=== PATIENT | female | born 1955 | race Caucasian/White ===

== ENCOUNTER 2024-03-30 19:34 | Emergency (ER) | payer MEDICARE ==
[2024-03-30] MEDS ORDERED: Morphine 4 MG/ML VIAL ONE (19:54)
[2024-03-30] MEDS ORDERED: Ketorolac Tromethamine 30 MG (1 mL) VIAL ONE (19:54)
[2024-03-30] MEDS ORDERED: Cyclobenzaprine 10 MG TAB ONE (20:14)
[2024-03-30] MEDS ORDERED: Acetaminophen/Codeine 30-300mg Tablet ONE (20:14)
== END 2024-03-30 20:27 | disposition home or self-care (01) ==
LOC: BURERS 19:34
DX: M94.0 Chondrocostal junction syndrome [Tietze] (principal); F17.210 Nicotine dependence, cigarettes, uncomplicated
CPT/HCPCS: 93005; 96372; 99285; J1885; J2272